=== PATIENT | female | born 1945 | race Caucasian/White ===

== ENCOUNTER 2019-10-27 11:35 | Emergency (ER) | payer OTHER ==
[~2019-10-27] VITALS: Ht 149.9 cm; Wt 59.4 kg
[2019-10-27] MEDS ORDERED: ZESTRIL5 MG (11:44)
[2019-10-27] MEDS ORDERED: SYNTHROID100 MCG (11:44)
[2019-10-27] MEDS ORDERED: CRESTOR10 MG (11:45)
[2019-10-27] MEDS ORDERED: GRALISE600 MG (11:45)
== END 2019-10-27 15:37 ==
LOC: ER 11:35
DX: M25.512 Pain in left shoulder (principal); M75.32 Calcific tendinitis of left shoulder